=== PATIENT | male | born 1995 | race Hispanic/Latino ===

== ENCOUNTER 2024-12-21 16:47 | Emergency (ER) | payer MEDICAID ==
[~2024-12-21] VITALS: Ht 165.1 cm; Wt 99.8 kg
--- NOTE | 2024-12-21 18:45 | NUR ---
MOVED TO ER 15 AT THIS TIME
[2024-12-21] MEDS ORDERED: KETO10TA2 PO (18:50)
[2024-12-21 19:00] VITALS: BP 149/88; PULSE 79; RESP 16; TEMP 98.1; O2SAT 96
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
--- NOTE | 2024-12-21 19:09 | NUR ---
ORTHO BOOT PLACED PER ORDER. CRUTCHES GIVEN., EDUCATION ON ORTHO BOOT AND CRUTCH USE GIVEN. VERBALIZED UNDERSTANDING.
--- NOTE | 2024-12-21 19:09 | HMCIMG ---
FOOT COMP 3+VWS LT INDICATION: fall/pain/swelling TECHNIQUE: FOOT COMP 3+VWS LT. FINDINGS AND IMPRESSION: Nondisplaced oblique fracture of the proximal fourth metatarsal. There is diffuse soft tissue swelling No radiopaque foreign body is identified.
== END 2024-12-21 19:16 | disposition home or self-care (01) ==
LOC: EDH 16:47
DX: S92.342A Displaced fracture of fourth metatarsal bone, left foot, initial encounter for closed fracture (principal); E11.9 Type 2 diabetes mellitus without complications; E78.00 Pure hypercholesterolemia, unspecified; I10 Essential (primary) hypertension; F41.9 Anxiety disorder, unspecified; X50.1XXA Overexertion from prolonged static or awkward postures, initial encounter; Y93.89 Activity, other specified; Y92.89 Other specified places as the place of occurrence of the external cause; Y99.8 Other external cause status
CPT/HCPCS: 73630; 99283